=== PATIENT | female | born 1970 ===

== ENCOUNTER 2020-07-24 10:50 | Outpatient (CLI) | payer OTHER | END 2020-07-24 11:02 | disposition home or self-care (01) | LOC: SONOGRAMA 10:50 → OFIC 805 07-28 15:45 | PROVIDERS: ATTEND Pathology Anatomic Pathology & Clinical Pathology | DX: E04.1 Nontoxic single thyroid nodule (principal) ==

== ENCOUNTER 2020-07-28 15:51 | Outpatient (CLI) | payer OTHER | END 2020-07-28 16:12 | disposition home or self-care (01) | LOC: OFIC 805 15:51 | PROVIDERS: ATTEND Otolaryngology Otology & Neurotology | DX: R42 Dizziness and giddiness (principal); H61.23 Impacted cerumen, bilateral ==